=== PATIENT | male | born 1955 | race Caucasian/White ===

== ENCOUNTER 2019-09-17 01:10 | Emergency (ER) | payer OTHER ==
[~2019-09-17] VITALS: Ht 167.6 cm; Wt 119.5 kg
[2019-09-17 01:16] VITALS: Ht 167.6 cm; Wt 119.5 kg
[2019-09-17 02:08] LABS: microscopic required? NO
[2019-09-17 02:13] LABS: PLATELET COUNT 197 x10^3mcL (130-400); RED CELL DISTRIBUTION WIDTH 14.4 % (11.5-14.5)
[2019-09-17 02:13] LABS: urine erythrocyte NEGATIVE (NEGATIVE)
[2019-09-17 02:37] LABS: CALCIUM 9.2 mg/dL (8.5-10.1); CARBON DIOXIDE 28.2 mmol/L (21-32); CHLORIDE SERUM 103 mmol/L (98-107); CREATININE SERUM 0.8 mg/dL (0.7-1.3); GFR1 > 60 mL/min; GLUCOSE SERUM 144 mg/dL (74-106); POTASSIUM SERUM 4.1 mmol/L (3.5-5.1); SODIUM SERUM 139 mmol/L (136-145)
[2019-09-17 02:42] LABS: ALBUMIN 3.7 g/dL (3.4-5.0); ALKALINE PHOSPHATASE 85 U/L (46-116); ALT/SGPT 32 U/L (16-63); AST/SGOT 11 U/L (15-37); BILIRUBIN TOTAL 0.21 mg/dL (0.20-1.00); TOTAL PROTEIN, SERUM 7.8 g/dL (6.4-8.2)
[2019-09-17 04:46] VITALS: BP 180/59
== END 2019-09-17 04:46 | disposition home or self-care (01) ==
LOC: ED 01:10
PROVIDERS: Emergency Medicine
DX: S39.012A Strain of muscle, fascia and tendon of lower back, initial encounter (principal); I10 Essential (primary) hypertension; E11.9 Type 2 diabetes mellitus without complications; G89.29 Other chronic pain; M25.569 Pain in unspecified knee; E78.00 Pure hypercholesterolemia, unspecified; J44.9 Chronic obstructive pulmonary disease, unspecified; Z20.828 Contact with and (suspected) exposure to other viral communicable diseases; X58.XXXA Exposure to other specified factors, initial encounter; Y93.89 Activity, other specified; Y92.89 Other specified places as the place of occurrence of the external cause; Y99.8 Other external cause status
CPT/HCPCS: J1885; U0003-CS

== ENCOUNTER 2020-03-08 23:40 | Emergency (ER) | payer OTHER | END 2020-03-09 01:18 | disposition left against medical advice (07) | LOC: ED 23:40 | DX: Z53.21 Procedure and treatment not carried out due to patient leaving prior to being seen by health care provider (principal) ==